=== PATIENT | male | born 1955 | race Caucasian/White ===

== ENCOUNTER 2021-07-31 01:41 | Inpatient (IN) | payer MEDICAID, SELFPAY ==
[2021-07-31] VITALS (13 sets, daily range): BP systolic 85–139; BP diastolic 52–70; PULSE 49–158; RESP 14–20; TEMP 36.2–37.3; O2SAT 95–100; BMI 24.1; BMI 25.8
--- NOTE | ~2021-07-31 | XR_ITS ---
EXAMINATION: XR CHEST CLINICAL INFORMATION: Chest pain COMPARISON: 03/08/2019 TECHNIQUE: Frontal view of the chest was obtained. FINDINGS: Lung volumes are symmetric. No focal consolidation is seen. Perihilar interstitium appears somewhat prominent. No evidence of pneumothorax or significant pleural effusion. Cardiac size is within normal limits. Calcification is present at the aortic arch. No acute osseous findings are seen. XR/XR chest 1V IMPRESSION: Mildly prominent perihilar interstitium, which could reflect airways disease. No focal consolidation.
--- NOTE | 2021-07-31 01:45 | ECG_ITS ---
Test Reason : CP Blood Pressure : / mmHG Vent. Rate : 146 BPM Atrial Rate : 000 BPM P-R Int : 000 ms QRS Dur : 094 ms QT Int : 310 ms P-R-T Axes : 000 064 225 degrees QTc Int : 483 ms Atrial fibrillation with rapid ventricular response ST & T wave abnormality, consider inferior ischemia ST & T wave abnormality, consider anterolateral ischemia Abnormal ECG When compared with ECG of 08-MAR-2019 22:06, Atrial fibrillation has replaced Sinus rhythm Vent. rate has increased BY [address] now depressed in Anterolateral leads T wave inversion now evident in Inferior leads T wave inversion now evident in Anterolateral leads Referred By: Generic ED Physician Electronically Signed By:DUSTY EDWARD MD
--- NOTE | 2021-07-31 01:59 | ED_ITS ---
HPI - Chest Pain General Chief Complaint: Chest Pain Stated Complaint: Chest Pain Time Seen by Provider: 07/31/21 01:51 Source: patient Mode of arrival: ambulatory Limitations: no limitations History of Present Illness HPI narrative: Patient comes emergency room complaining of palpitations and chest pain that started 30 minutes prior to arrival to the emergency room. Patient states that he usually takes metoprolol, he did not take it today because he knew he was going to go out drinking with his friends. Patient admits to drinking alcohol, on arrival to his house patient took 2 tablets of nitroglycerin. Patient is poor historian. Per patient's medical records in [facility], seems that patient is taking Eliquis for atrial fibrillation. Patient is known to use cocaine and heroin. Patient denies using either drug. Also, for patient's records, patient has history of CABG in 2011 Related Data Allergies Allergy/AdvReac Type Severity Reaction Status Date / Time No Known Allergies Allergy Unverified 04/15/20 19:40 [No Known Allergies*] Review of Systems Review of Systems: Constitutional : No Weight loss, No Fever, No Chills, No Night Sweats, No Fatigue, No Malaise ENT/Mouth : No Hearing loss, No Ear Pain, No Nasal Congestion, No Sinus Pain, No Hoarseness, No sore throat, No Rhinorrhea, No Swallowing Difficulty Eyes: No Eye Pain, No Swelling, No Redness, No Foreign Body, No Discharge, No Vision Changes Cardiovascular : Complaining of chest pain, palpitations Respiratory : No Cough, No Sputum, No Wheezing, No Smoke Exposure, No Dyspnea Gastrointestinal : No Nausea, No Vomiting, No Diarrhea, No Constipation, No abdominal Pain, No Hematochezia, No Melena Genitourinary : no irregular bleeding, No Dysuria, No Urinary Frequency, No Tyree turia, No Urinary Incontinence, No Urgency, No Flank Pain, No Urinary Flow Changes, No Hesitancy Musculoskeletal : No joint pain, No Myalgias, No Joint Swelling Skin : No Skin Lesions, No rash Neuro : No Weakness, No Numbness, No Paresthesias, No Loss of Consciousness, No Dizziness, No Headache Psych : No Anxiety/Panic, No Depression, No SI/HI/AH/VH, No Social Issues, Heme/Lymph: No Bruising, No Bleeding,No Lymphadenopathy Endocrine : No Polyuria, No Polydipsia, No Temperature Intolerance PMFSH Social History Social History Advance Directives: No Physical Exam Vital Signs: Vital Signs: Last Vital Signs Temp 99.2 F 07/31/21 01:55 Pulse 65 07/31/21 05:50 Resp 18 07/31/21 05:50 BP 91/52 L 07/31/21 05:50 Pulse Ox 98 07/31/21 05:50 BMI result Body Mass Index 24.1 Const: Other: Appearance: Alert. Oriented X3. Patient looks uncomfortable, shaking, states he feels very cold Eyes: Pupils equal, round and reactive to light. ENT: Pharynx normal. Neck: Normal inspection. Neck supple. No lymph nodes noted. No crepitus CVS: Irregularly irregular, Pulses normal. Normal S1 and S2 Respiratory: No respiratory distress. Breath sounds normal. No Wheezing. No rales Abdomen: Soft and nontender. No rigidity. No distention. Skin: Skin warm and dry. Normal skin color. Normal skin turgor. Extremities: No lower extremity edema. No lower extremity edema. No Lacerations. No Rash Neuro: Oriented X 3. No motor deficit. No sensory deficit. Moving all extermities. No slurred speech. Course Course Course Narrative: Patient's blood pressure dropped in the mid 80s, likely secondary to the 2 doses of metoprolol IV. Sepsis not suspected. Patient's he art rate improved to 77, patient resting comfortably Patient was given IV fluids to increase the blood pressure. Patient states that this time he has no chest pain at all, heart rate in the mid 70s. Overall patient feels much better. Patient's atrial fibrillation with RVR likely triggered by alcohol and skipping metoprolol home dose. Patient's troponin went from 3.6 to 141.2 in less than 3 hours. Patient is asymptomatic. No acute EKG changes. I discussed the patient with Dr. Garcia, we will stop the Eliquis and start heparin. Patient being admitted by Dr. Guzman [facility] - Chest Pain Lab Data Result diagrams: 07/31/21 02:08 07/31/21 02:08 Labs: Lab Results 07/31/21 07/31/21 07/31/21 Range/Units 02:08 02:08 02:08 WBC 6.6 (4.8-10.8) X10*3/uL RBC 3.83 L (4.60-5.80) X10*6/uL Hgb 12.0 L (14.0-18.0) g/dl Hct 35.7 L (42.0-52.0) % MCV 93.2 (80.0-98.0) fL MCH 31.3 (27.0-33.0) pg MCHC 33.6 (31.0-36.0) g/dl RDW 13.4 (11.0-16.0) % Plt Count 111 L (160-400) X10*3/uL MPV 11.0 (9.4-12.4) fL Immature Gran % (Auto) 0.0 (0.0-0.4) % Neut % (Auto) 40.8 L (45-73) % Lymph % (Auto) 45.4 H (20-40) % [place] % (Auto) 9.1 (2-11) % Eos % (Auto) 4.4 H (0-4) % Baso % (Auto) 0.3 (0-2) % Lymph # (Auto) 3.0 (1.2-4.9) X10*3/uL [place] # (Auto) 0.6 (0.1-1.2) X10*3/uL Eos # (Auto) 0.3 (0.0-0.4) X10*3/uL Baso # (Auto) 0.0 (0.0-0.2) X10*3/uL Abs Immat Gran (auto) 0.00 (0.00-0.03) X10*3/uL Absolute Neuts (auto) 2.7 (2.0-8.3) x10*3/uL Absolute Nucleated RBC 0.000 (0.0-0.012) X10*3/uL Nucleated RBC % (auto) 0.0 (0.0-0.2) /100WBC Smear Tech's Comments VERIFIED PT 12.9 (9.9-13.0) SEC INR 1.1 (0.9-1.1) Sodium 139 (135-145) mmol/L Potassium 3.1 L (3.3-5.1) mmol/L Chloride 104 (96-108) mmol/L Carbon Dioxide 24 (22-29) mmol/L Anion Gap 14 (12-20) BUN 21 H (9-16) mg/dL Creatinine 1.08 (0.5-1.4) mg/dL Estim Creat Clear Calc 65.9 Estimated GFR > 60 Random Glucose 79 (60-115) mg/dL Lactic Acid (0.5-2.0) mmol/L Lactic Acid F/U @ 2Hr (0.5-2.0) mmol/L Calcium 9.1 (8.4-10.2) mg/dL Magnesium 2.2 (1.6-2.6) mg/dL Total Bilirubin 0.5 (0.0-1.0) mg/dL Direct Bilirubin 0.2 (0.0-0.5) mg/dL AST 25 (5-37) U/L ALT 18 (0-40) U/L Alkaline Phosphatase 114 (39-117) U/L Troponin I High Sens (<3.5-35.0) ng/L B-Natriuretic Peptide (<100) pg/mL Total Protein 7.8 (6.5-8.0) g/dL Albumin 4.3 (3.5-5.0) g/dL Ethyl Alcohol mg/dL COVID-19 (DAMI) (Negative) COVID-19 Clin Com 07/31/21 07/31/21 07/31/21 Range/Units 02:08 02:08 02:08 WBC (4.8-10.8) X10*3/uL RBC (4.60-5.80) X10*6/uL Hgb (14.0-18.0) g/dl Hct (42.0-52.0) % MCV (80.0-98.0) fL MCH (27.0-33.0) pg MCHC (31.0-36.0) g/dl RDW (11.0-16.0) % Plt Count (160-400) X10*3/uL MPV (9.4-12.4) fL Immature Gran % (Auto) (0.0-0.4) % Neut % (Auto) (45-73) % Lymph % (Auto) (20-40) % [place] % (Auto) (2-11) % Eos % (Auto) (0-4) % Baso % (Auto) (0-2) % Lymph # (Auto) (1.2-4.9) X10*3/uL [place] # (Auto) (0.1-1.2) X10*3/uL Eos # (Auto) (0.0-0.4) X10*3/uL Baso # (Auto) (0.0-0.2) X10*3/uL Abs Immat Gran (auto) (0.00-0.03) X10*3/uL Absolute Neuts (auto) (2.0-8.3) x10*3/uL Absolute Nucleated RBC (0.0-0.012) X10*3/uL Nucleated RBC % (auto) (0.0-0.2) /100WBC Smear Tech's Comments PT (9.9-13.0) SEC INR (0.9-1.1) Sodium (135-145) mmol/L Potassium (3.3-5.1) mmol/L Chloride (96-108) mmol/L Carbon Dioxide (22-29) mmol/L Anion Gap (12-20) BUN (9-16) mg/dL Creatinine (0.5-1.4) mg/dL Estim Creat Clear Calc Estimated GFR Random Glucose (60-115) mg/dL Lactic Acid 2.8 H* (0.5-2.0) mmol/L Lactic Acid F/U @ 2Hr (0.5-2.0) mmol/L Calcium (8.4-10.2) mg/dL Magnesium (1.6-2.6) mg/dL Total Bilirubin (0.0-1.0) mg/dL Direct Bilirubin (0.0-0.5) mg/dL AST (5-37) U/L ALT (0-40) U/L Alkaline Phosphatase (39-117) U/L Troponin I High Sens 3.6 (<3.5-35.0) ng/L B-Natriuretic Peptide 33 (<100) pg/mL Total Protein (6.5-8.0) g/dL Albumin (3.5-5.0) g/dL Ethyl Alcohol mg/dL COVID-19 (DAMI) Negative (Negative) COVID-19 Clin Com See Note 07/31/21 07/31/21 07/31/21 Range/Units 02:09 04:21 04:43 WBC (4.8-10.8) X10*3/uL RBC (4.60-5.80) X10*6/uL Hgb (14.0-18.0) g/dl Hct (42.0-52.0) % MCV (80.0-98.0) fL MCH (27.0-33.0) pg MCHC (31.0-36.0) g/dl RDW (11.0-16.0) % Plt Count (160-400) X10*3/uL MPV (9.4-12.4) fL Immature Gran % (Auto) (0.0-0.4) % Neut % (Auto) (45-73) % Lymph % (Auto) (20-40) % [place] % (Auto) (2-11) % Eos % (Auto) (0-4) % Baso % (Auto) (0-2) % Lymph # (Auto) (1.2-4.9) X10*3/uL [place] # (Auto) (0.1-1.2) X10*3/uL Eos # (Auto) (0.0-0.4) X10*3/uL Baso # (Auto) (0.0-0.2) X10*3/uL Abs Immat Gran (auto) (0.00-0.03) X10*3/uL Absolute Neuts (auto) (2.0-8.3) x10*3/uL Absolute Nucleated RBC (0.0-0.012) X10*3/uL Nucleated RBC % (auto) (0.0-0.2) /100WBC Smear Tech's Comments PT (9.9-13.0) SEC INR (0.9-1.1) Sodium (135-145) mmol/L Potassium (3.3-5.1) mmol/L Chloride (96-108) mmol/L Carbon Dioxide (22-29) mmol/L Anion Gap (12-20) BUN (9-16) mg/dL Creatinine (0.5-1.4) mg/dL Estim Creat Clear Calc Estimated GFR Random Glucose (60-115) mg/dL Lactic Acid (0.5-2.0) mmol/L Lactic Acid F/U @ 2Hr 0.9 (0.5-2.0) mmol/L Calcium (8.4-10.2) mg/dL Magnesium (1.6-2.6) mg/dL Total Bilirubin (0.0-1.0) mg/dL Direct Bilirubin (0.0-0.5) mg/dL AST (5-37) U/L ALT (0-40) U/L Alkaline Phosphatase (39-117) U/L Troponin I High Sens 141.2 H* D (<3.5-35.0) ng/L B-Natriuretic Peptide (<100) pg/mL Total Protein (6.5-8.0) g/dL Albumin (3.5-5.0) g/dL Ethyl Alcohol 19 mg/dL COVID-19 (DAMI) (Negative) COVID-19 Clin Com Discharge Plan Discharge Clinical Impression: Atrial fibrillation with RVR, Chest pain Patient Disposition: Admitted As Inpatient Instructions: A-fib (Atrial Fibrillation) (ED) Additional Instructions: Please avoid skipping your home dose of metoprolol. Please follow-up with your primary care physician tomorrow. If you have any worsening or new symptoms, please return to the emergency room or call 911
[2021-07-31] MEDS: Metoprolol Tartrate 5 MG/5 ML VIAL IVPUSH ×2 (02:11→02:57)
[2021-07-31] MEDS: 0.9 % Sodium Chloride 1,000 ML 999 ML IVCONT ×2 (02:11→03:55)
--- NOTE | 2021-07-31 02:16 | PC.NURSE ---
pt to room directly from wr. pt c/o chest pain after drinking and using cocaine tonight with a hx of gaye. at bedside with pt in Gu[place]ese. pt is a poor historian and unsure if he is on blood thinners. pt on monitor with HR 145, pt arrives alert, respirations easy, n/l. skin w/d. IV placed to RAC, labs drawn to lab. BC obtained. Pt medicated as per emar for hr. will continue to monitor pt.
[2021-07-31 02:17] LABS: PLT CLUMP 1; Red Cell Distribution Width 13.4 % (11.0-16.0); SCAN SMEAR FLAG 1
[2021-07-31 02:19] LABS: Basophils Percent Auto 0.3 % (0-2); Eosinophils Absolute Auto 0.3 X10*3/uL (0.0-0.4); Eosinophils Percent Auto 4.4 % (0-4); Hematocrit 35.7 % (42.0-52.0); Lymphocytes Percent Auto 45.4 % (20-40); MANUAL DIFF FLAG SCAN; Mean Corpuscular HGB Conc 33.6 g/dl (31.0-36.0); Mean Corpuscular Hemoglobin 31.3 pg (27.0-33.0); Mean Corpuscular Volume 93.2 fL (80.0-98.0); Monocytes Absolute Auto 0.6 X10*3/uL (0.1-1.2); Monocytes Percent Auto 9.1 % (2-11); Neutrophils Absolute Auto 2.7 x10*3/uL (2.0-8.3); Neutrophils Percent Auto 40.8 % (45-73); Red Blood Count 3.83 X10*6/uL (4.60-5.80)
[2021-07-31 02:31] LABS: INTERNATIONAL NORM RATIO 1.1 (0.9-1.1); Prothrombin Time 12.9 SEC (9.9-13.0)
[2021-07-31 02:33] LABS: Ethanol 19 mg/dL
[2021-07-31 02:33] LABS: Lactic Acid 2.8 mmol/L (0.5-2.0)
[2021-07-31 02:34] LABS: COVID-19 Test Negative (Negative)
[2021-07-31 02:35] LABS: Alanine Aminotransferase 18 U/L (0-40); Albumin Level 4.3 g/dL (3.5-5.0); Alkaline Phosphatase 114 U/L (39-117); Anion Gap 14 (12-20); Aspartate Amino Transferase 25 U/L (5-37); Bilirubin Direct 0.2 mg/dL (0.0-0.5); Bilirubin Total 0.5 mg/dL (0.0-1.0); Blood Urea Nitrogen 21 mg/dL (9-16); Calcium 9.1 mg/dL (8.4-10.2); Carbon Dioxide 24 mmol/L (22-29); Chloride 104 mmol/L (96-108); Creatinine Clr Calc Pharmacy 65.9; Estimated Glomerular Filt Rate > 60; Glucose Random 79 mg/dL (60-115); Magnesium 2.2 mg/dL (1.6-2.6); Potassium 3.1 mmol/L (3.3-5.1); Sodium 139 mmol/L (135-145); Total Protein 7.8 g/dL (6.5-8.0)
[2021-07-31 02:40] LABS: B Type Natriuretic Peptide 33 pg/mL (<100); Troponin-I High Sensitivity 3.6 ng/L (<3.5-35.0)
[2021-07-31 02:42] LABS: Platelet Count 111 X10*3/uL (160-400); White Blood Count 6.6 X10*3/uL (4.8-10.8)
[2021-07-31 02:43] LABS: SLIDE REVIEW VERIFIED
[2021-07-31] MEDS: Potassium Chloride Packet 20 MEQ PACKET 40 MEQ PO ×2 (03:00→08:08)
--- NOTE | 2021-07-31 03:02 | PC.NURSE ---
pt medicated with 2nd dose of metoprolol as per emar. pt states my chest is not hurting at this time pt remains on monitor with hr 110- 128
[2021-07-31 04:14] LABS: Reflex Lactate? Lactic Acid Added
--- NOTE | 2021-07-31 04:31 | ECG_ITS ---
Test Reason : RYTHYM CHECK Blood Pressure : / mmHG Vent. Rate : 071 BPM Atrial Rate : 071 BPM P-R Int : 200 ms QRS Dur : 098 ms QT Int : 422 ms P-R-T Axes : 075 043 047 degrees QTc Int : 458 ms Normal sinus rhythm Normal ECG When compared with ECG of 31-JUL-2021 01:44, Sinus rhythm has replaced Atrial fibrillation Vent. rate has decreased BY [address] no longer depressed in Anterolateral leads T wave inversion no longer evident in Inferior leads T wave inversion no longer evident in Anterolateral leads Referred By: Ximena Nugent Electronically Signed By:DUSTY EDWARD MD
[2021-07-31 04:39] LABS: ~Lactic Acid-LAB USE ONLY 0.9 mmol/L (0.5-2.0)
--- NOTE | 2021-07-31 04:58 | PC.NURSE ---
REPEAT TROP AND LACTIC ACID DRAWN TO LAB. PT REMAINS ON MONITOR WITH A HR 71, PT DENIES CP AT THIS TIME. PT AWAITING FOR PENDING LABS AND WILL POSSIBLY BE D/C AT THAT TIME.
[2021-07-31 05:13] LABS: Troponin-I High Sensitivity 141.2 ng/L (<3.5-35.0)
--- NOTE | 2021-07-31 05:49 | PC.NURSE ---
PT BEING ADMITTED TO THE HOSPITAL D/T HIGH REPEAT TROPONIN.
--- NOTE | 2021-07-31 06:16 | P.HPHOSP_ITS ---
History of Present Illness Date of Service: 07/31/21 Chief Complaint: Chest pain 66 year old male with CAD, [place] in 2012 s/p CABG, h/o AFIB on metoprolol and Eliquis. He presents with chest pain and palpitation, he was out drinking and didn't take his metoprolol and upon getting home was experiencing palpitations and chest pain and took 2 nitro with some relieve and calling 911 in ED he was in AFIB with RVR with ventricular rate nearly 150. He converted to sinus rythm after IV metoprolol. His initial troponin I was 3.6 and repeat 141. Cardiology advises stopping Eliquis and starting heparin drip. He is now chest pain free, but BP low at 91/52 assymptomatic. Review of Systems Review of Systems: Gen: no fever Resp: no sob, no cough CV: no chest at moment, no COMER, no leg edema GI: No n/v, no abd pain Neuro: No confusion Yes all other systems are reviewed and are negative [facility] Medical History (Updated 07/31/21 @ 06:26 by Zak Guzman MD) Afib CAD (coronary artery disease) Family History (Updated 07/31/21 @ 06:23 by Zak Guzman MD) Other CAD (coronary artery disease) Pertinent family history: Father of [place] in his 70s Surgical History (Updated 07/31/21 @ 06:24 by Zak Guzman MD) History of appendectomy Hx of CABG Social History (Updated 07/31/21 @ 06:25 by Zak Guzman MD) Alcohol intake: current Patient Tobacco Use Status: Former Tobacco user Advance Directives: No Meds Allergies Allergy/AdvReac Type Severity Reaction Status Date / Time No Known Allergies Allergy Unverified 04/15/20 19:40 [No Known Allergies*] Active Medications: Current Medications Heparin Sodium/Sodium Chloride () 25,000 unit in 250 mls @ 0 mls/hr IVCONT .Q0M [facility]; Protocol Home Medications Medication Instructions Recorded Confirmed Last Taken Type Eliquis 07/31/21 Unknown History aspirin 325 mg PO DAILY 07/31/21 07/31/21 Unknown History calcium 1,000 mg PO DAILY 07/31/21 07/31/21 Unknown History metoprolol succinate 100 mg PO DAILY 07/31/21 07/31/21 Unknown History Physical Exam Vital Signs and Narrative: Vital Signs: Last Vital Signs Temp 99.2 F 07/31/21 01:55 Pulse 65 07/31/21 05:50 Resp 18 07/31/21 05:50 BP 91/52 L 07/31/21 05:50 Pulse Ox 98 07/31/21 05:50 BMI result Body Mass Index 24.1 Const: Other: Constitutional: Alert, in no distress, Mental Status: Oriented to person, place and time. Eyes: Pupils are equal, round and reactive to light. Ear, Nose and Throat: Oropharynx clear, mucous membranes moist. Ears and nose without eformities. Trachea midline. Respiratory: Clear to auscultation. No wheezing, rales or rhonchi. Cardiovascular: S1 S2 regular. No murmurs, rubs or gallops. Gastrointestinal: Abdomen soft, non-tender, non-distended. Normal bowel sounds.? Neurologic: Cranial nerves II-XII grossly intact. No focal neurological deficits. Moves all extremities spontaneously.? Skin: No rashes or lesions.? Musculoskeletal: No cyanosis or clubbing. Psychiatric: Normal mood and affect? Results Labs CBC and Chem 7: 07/31/21 02:08 07/31/21 02:08 Labs: Laboratory Results - last 24 hr 07/31/21 07/31/21 07/31/21 02:08 02:08 02:08 MCV 93.2 MCH 31.3 MCHC 33.6 RDW 13.4 Plt Count 111 L MPV 11.0 Immature Gran % (Auto) 0.0 Neut % (Auto) 40.8 L Lymph % (Auto) 45.4 H [place] % (Auto) 9.1 Eos % (Auto) 4.4 H Baso % (Auto) 0.3 Lymph # (Auto) 3.0 [place] # (Auto) 0.6 Eos # (Auto) 0.3 Baso # (Auto) 0.0 Abs Immat Gran (auto) 0.00 Absolute Neuts (auto) 2.7 Absolute Nucleated RBC 0.000 Nucleated RBC % (auto) 0.0 Smear Tech's Comments VERIFIED PT 12.9 INR 1.1 Anion Gap 14 Estim Creat Clear Calc 65.9 Estimated GFR > 60 Random Glucose 79 Lactic Acid Lactic Acid F/U @ 2Hr Calcium 9.1 Magnesium 2.2 Total Bilirubin 0.5 Direct Bilirubin 0.2 AST 25 ALT 18 Alkaline Phosphatase 114 Troponin I High Sens B-Natriuretic Peptide Total Protein 7.8 Albumin 4.3 Ethyl Alcohol COVID-19 (DAMI) COVID-19 [facility] 07/31/21 07/31/21 07/31/21 02:08 02:08 02:08 MCV MCH MCHC RDW Plt Count MPV Immature Gran % (Auto) Neut % (Auto) Lymph % (Auto) [place] % (Auto) Eos % (Auto) Baso % (Auto) Lymph # (Auto) [place] # (Auto) Eos # (Auto) Baso # (Auto) Abs Immat Gran (auto) Absolute Neuts (auto) Absolute Nucleated RBC Nucleated RBC % (auto) Smear Tech's Comments PT INR Anion Gap Estim Creat Clear Calc Estimated GFR Random Glucose Lactic Acid 2.8 H* Lactic Acid F/U @ 2Hr Calcium Magnesium Total Bilirubin Direct Bilirubin AST ALT Alkaline Phosphatase Troponin I High Sens 3.6 B-Natriuretic Peptide 33 Total Protein Albumin Ethyl Alcohol COVID-19 (DAMI) Negative COVID-19 [facility] See Note 07/31/21 07/31/21 07/31/21 02:09 04:21 04:43 MCV MCH MCHC RDW Plt Count MPV Immature Gran % (Auto) Neut % (Auto) Lymph % (Auto) [place] % (Auto) Eos % (Auto) Baso % (Auto) Lymph # (Auto) [place] # (Auto) Eos # (Auto) Baso # (Auto) Abs Immat Gran (auto) Absolute Neuts (auto) Absolute Nucleated RBC Nucleated RBC % (auto) Smear Tech's Comments PT INR Anion Gap Estim Creat Clear Calc Estimated GFR Random Glucose Lactic Acid Lactic Acid F/U @ 2Hr 0.9 Calcium Magnesium Total Bilirubin Direct Bilirubin AST ALT Alkaline Phosphatase Troponin I High Sens 141.2 H* D B-Natriuretic Peptide Total Protein Albumin Ethyl Alcohol 19 COVID-19 (DAMI) COVID-19 [facility] Com Imaging Radiologist's Impressions: Impressions Chest X-Ray 07/31/21 02:29 IMPRESSION: Mildly prominent perihilar interstitium, which could reflect airways disease. No focal consolidation. Assessment and Plan (1) NSTEMI (non-ST elevated myocardial infarction): Status: Acute (2) Atrial fibrillation with RVR: Status: Acute (3) Chest pain: Status: Acute 66 year old male with CAD, [place] in 2012 s/p CABG, h/o AFIB on metoprolol and Eliquis. He presents with chest pain and palpitation and found to be in AFIB with RVR, and has elevated troponin I. NSTEMI--suspect rise in trop is related to AFIB with RVR -continue Heparin -ASA -BB if BP ok -Statin -Cardiology eval AFIB--back in sinus, on Eliquis at home but now on heparin. Metoprolol for rate control h/o CAD--should be on ASA, BB and stain.. Med rec is been done. Low BP--assymptomatic, NS been given HypOkalemia--K replaced DVT: heparin Quality Stroke Does the patient have a stroke diagnosis?: No VTE Prior VTE?: No VTE Risk Level:: Medical - moderate - high VTE Device Contraindication: Treatment Not Indicated VTE Drug Contraindication: N/A - Med Ordered
--- NOTE | 2021-07-31 06:17 | PC.NURSE ---
HOSPITALIST IN ROOM FOR EVAL. PT DOES NOT KNOW MEDS OR DOSES FOR MED REC.
--- NOTE | 2021-07-31 06:56 | PC.NURSE ---
unable to hang heparin at this time d/t difference in weight. Awaiting for chg in doses. report given to on- coming nurse.
[2021-07-31] MEDS: 0.9 % Sodium Chloride 1,000 ML 100 ML IVCONT (07:13)
[2021-07-31 07:24] LABS: INTERNATIONAL NORM RATIO 1.2 (0.9-1.1); Prothrombin Time 13.9 SEC (9.9-13.0)
[2021-07-31 07:27] LABS: Partial Thromboplastin Time 31.7 SEC (24.1-38.0)
[2021-07-31] MEDS: Heparin Sodium,Porcine 5,000 UNIT/ML VIAL 6200 UNIT IVPUSH (08:00)
[2021-07-31] MEDS: Heparin Sodium,Porcine/1/2NS 25,000 UNIT/250 ML IV.SOLN 10.79 UNIT IVCONT (08:07)
[2021-07-31] MEDS: 0.9 % Sodium Chloride Flush 3 ML SYRINGE IVFLUSH ×3 (08:10→20:30)
[2021-07-31 08:33] LABS: INTERNATIONAL NORM RATIO 1.3 (0.9-1.1); Prothrombin Time 14.9 SEC (9.9-13.0)
[2021-07-31 08:39] LABS: Mean Corpuscular HGB Conc 33.3 g/dl (31.0-36.0); Mean Corpuscular Hemoglobin 31.4 pg (27.0-33.0); Mean Corpuscular Volume 94.3 fL (80.0-98.0); Mean Platelet Volume 11.6 fL (9.4-12.4); Red Blood Count 3.18 X10*6/uL (4.60-5.80); Red Cell Distribution Width 13.2 % (11.0-16.0); White Blood Count 5.1 X10*3/uL (4.8-10.8)
[2021-07-31 08:57] LABS: Platelet Count 94 X10*3/uL (160-400)
[2021-07-31 08:59] LABS: PTT Heparin Drip > 200.0 SEC (53-77.9)
--- NOTE | 2021-07-31 09:30 | PC.NURSE ---
HEPARIN PROTOCOL PTT WAS DRAWN AT WRONG TIME WHILE HEPARIN WAS RUNNING. DR FOUNTAIN MADE AWARE OF SITUATION AND LAB RESULT > 200. PTT ACTUALLY DUE FOR 1407. HEPARIN CONTINUES TO RUN AT THIS TIME.
[2021-07-31] MEDS: Folic Acid 1 MG TABLET PO (10:29)
[2021-07-31] MEDS: Aspirin 81 MG TAB.CHEW PO (10:29)
[2021-07-31] MEDS: Thiamine HCL 100 MG TABLET PO (10:29)
--- NOTE | 2021-07-31 11:44 | PM.EVENT ---
Event Note Date of Service: 08/01/21 Event Note: Patient seen examined, came to the hospital because of heart racing, denies any chest pain or abdominal pain or fever chills Physical exam: Unchanged from H&P. Assessment and plan: Coordinated in H&P, cardiology consult pending. Patient was on heparin drip which was stopped probably elevated troponin secondary to AFib. Patient need further workup outpatient Offered workup where he wants to do it from with his PCP PTT still running in 150 range, initial PTT of 200 was added because Accidentally drawn while at heparin drip was running. discussed with the pharmacy and the nursing staff will start Eliquis once ptt is normal range
--- NOTE | 2021-07-31 13:37 | PM.CNCAR ---
History of Present Illness History of Present Illness Date of Service: 07/31/21 Requesting physician: Tex Scott Chief complaint: NSTEMI, AFIB Narrative: Pleasant 66-year-old gentleman who is from [place] and had bypass surgery many years ago. He does not know the details. He is presenting for palpitations. Was noted to be in AFib with RVR. He has reverted back to sinus rhythm at this stage. He did not have any chest discomfort but had palpitations. Previously he has been noticing some exertional chest discomfort which is central in location. He did not have similar discomfort when he had AFib with RVR. He ruled in for NSTEMI and his high sensitivity troponins were 3.6 and 141. Currently pain free. Back in sinus rhythm. [facility] Past Medical History Medical History (Updated 07/31/21 @ 06:26 by Zak Guzman MD) Afib CAD (coronary artery disease) Family History Family History (Updated 07/31/21 @ 06:23 by Zak Guzman MD) Other CAD (coronary artery disease) Surgical History Surgical History (Updated 07/31/21 @ 06:24 by Zak Guzman MD) History of appendectomy Hx of CABG Social History Social History (Updated 07/31/21 @ 06:25 by Zak Guzman MD) Alcohol intake: current Patient Tobacco Use Status: Former Tobacco user Advance Directives: No Meds Allergies Allergy/AdvReac Type Severity Reaction Status Date / Time No Known Allergies Allergy Unverified 04/15/20 19:40 [No Known Allergies*] Active Medications: Current Medications Acetaminophen (Acetaminophen 325 Mg Tablet) 650 mg PO Q6H PRN PRN Reason: Pain, Mild (Pain Scale 1-3) Aspirin (Aspirin 81 Mg Tab.Chew) 81 mg PO DAILY [facility] Last Admin: 07/31/21 10:29 Dose: 81 mg Documented by: Atorvastatin Calcium (Atorvastatin Calcium 80 Mg Tablet) 80 mg PO BEDTIME [facility] Folic Acid (Folic Acid 1 Mg Tablet) 1 mg PO DAILY [facility] Last Admin: 07/31/21 10:29 Dose: 1 mg Documented by: Heparin Sodium (Porcine) (Heparin Sodium,Porcine 5,000 Unit/Ml Vial) 3,100 unit 40 unit/kg (3100 unit) IVPUSH PROTOCOL BOLUS PRN; Protocol PRN Reason: 40 unit/kg - Heparin Protocol Heparin Sodium (Porcine) (Heparin Sodium,Porcine 5,000 Unit/Ml Vial) 6,200 unit 80 unit/kg (6200 unit) IVPUSH PROTOCOL BOLUS PRN; Protocol PRN Reason: 80 unit/kg - Heparin Protocol Sodium Chloride (Ns) 1,000 mls @ 100 mls/hr IVCONT .Q10H [facility] Stop: 07/31/21 16:44 Last Admin: 07/31/21 07:13 Dose: 100 mls/hr Documented by: Heparin Sodium/Sodium Chloride () 25,000 unit in 250 mls @ 0 mls/hr IVCONT .Q0M [facility]; Protocol Last Admin: 07/31/21 08:07 Dose: 14 units/kg/hr, 10.79 mls/hr Documented by: Melatonin (Melatonin 3 Mg Tablet) 6 mg PO BEDTIME PRN PRN Reason: Insomnia Sodium Chloride (0.9 % Sodium Chloride Flush 3 Ml Syringe) 3 ml IVFLUSH QSHIFT [facility] Last Admin: 07/31/21 08:10 Dose: 3 ml Documented by: Thiamine HCl (Thiamine Hcl 100 Mg Tablet) 100 mg PO DAILY [facility] Last Admin: 07/31/21 10:29 Dose: 100 mg Documented by: Home Medications Medication Instructions Recorded Confirmed Last Taken Type Eliquis 07/31/21 Unknown History aspirin 325 mg PO DAILY 07/31/21 07/31/21 Unknown History calcium 1,000 mg PO DAILY 07/31/21 07/31/21 Unknown History metoprolol succinate 100 mg PO DAILY 07/31/21 07/31/21 Unknown History Physical Exam Vital Signs: Vital Signs: Last Vital Signs Temp 99.2 F 07/31/21 01:55 Pulse 58 07/31/21 10:28 Resp 14 07/31/21 10:28 BP 111/65 07/31/21 10:28 Pulse Ox 95 07/31/21 10:28 BMI result Body Mass Index 25.8 GENERAL APPEARANCE: in no acute distress, pleasant. NECK: no carotid bruit, mild jugular venous distention. SKIN: no suspicious lesions, warm and dry. HEART: no murmurs, regular rate and rhythm. LUNGS: Few crackles at bases. ABDOMEN: soft, nontender. EXTREMITIES: no edema. PERIPHERAL PULSES: equal. NEUROLOGIC: No gross deficits, AAO X 3 Objective Labs and Meds Result diagrams: 07/31/21 08:20 07/31/21 02:08 Lab results: Laboratory Results - last 24 hr 07/31/21 07/31/21 07/31/21 02:08 02:08 02:08 WBC 6.6 RBC 3.83 L Hgb 12.0 L Hct 35.7 L MCV 93.2 MCH 31.3 MCHC 33.6 RDW 13.4 Plt Count 111 L MPV 11.0 Immature Gran % (Auto) 0.0 Neut % (Auto) 40.8 L Lymph % (Auto) 45.4 H [place] % (Auto) 9.1 Eos % (Auto) 4.4 H Baso % (Auto) 0.3 Lymph # (Auto) 3.0 [place] # (Auto) 0.6 Eos # (Auto) 0.3 Baso # (Auto) 0.0 Abs Immat Gran (auto) 0.00 Absolute Neuts (auto) 2.7 Absolute Nucleated RBC 0.000 Nucleated RBC % (auto) 0.0 Smear Tech's Comments VERIFIED PT 12.9 INR 1.1 APTT PTT (Heparin Protocol) Sodium 139 Potassium 3.1 L Chloride 104 Carbon Dioxide 24 Anion Gap 14 BUN 21 H Creatinine 1.08 Estim Creat Clear Calc 65.9 Estimated GFR > 60 Random Glucose 79 Lactic Acid Lactic Acid F/U @ 2Hr Calcium 9.1 Magnesium 2.2 Total Bilirubin 0.5 Direct Bilirubin 0.2 AST 25 ALT 18 Alkaline Phosphatase 114 Troponin I High Sens B-Natriuretic Peptide Total Protein 7.8 Albumin 4.3 Ethyl Alcohol COVID-19 ([facility]AMI) COVID-19 Clin Com 07/31/21 07/31/21 07/31/21 02:08 02:08 02:08 WBC RBC Hgb Hct MCV MCH MCHC RDW Plt Count MPV Immature Gran % (Auto) Neut % (Auto) Lymph % (Auto) [place] % (Auto) Eos % (Auto) Baso % (Auto) Lymph # (Auto) [place] # (Auto) Eos # (Auto) Baso # (Auto) Abs Immat Gran (auto) Absolute Neuts (auto) Absolute Nucleated RBC Nucleated RBC % (auto) Smear Tech's Comments PT INR APTT PTT (Heparin Protocol) Sodium Potassium Chloride Carbon Dioxide Anion Gap BUN Creatinine Estim Creat Clear Calc Estimated GFR Random Glucose Lactic Acid 2.8 H* Lactic Acid F/U @ 2Hr Calcium Magnesium Total Bilirubin Direct Bilirubin AST ALT Alkaline Phosphatase Troponin I High Sens 3.6 B-Natriuretic Peptide 33 Total Protein Albumin Ethyl Alcohol COVID-19 ([facility]AMI) Negative [facility] See Note 07/31/21 07/31/21 07/31/21 02:09 04:21 04:43 WBC RBC Hgb Hct MCV MCH MCHC RDW Plt Count MPV Immature Gran % (Auto) Neut % (Auto) Lymph % (Auto) [place] % (Auto) Eos % (Auto) Baso % (Auto) Lymph # (Auto) [place] # (Auto) Eos # (Auto) Baso # (Auto) Abs Immat Gran (auto) Absolute Neuts (auto) Absolute Nucleated RBC Nucleated RBC % (auto) Smear Tech's Comments PT INR APTT PTT (Heparin Protocol) Sodium Potassium Chloride Carbon Dioxide Anion Gap BUN Creatinine Estim Creat Clear Calc Estimated GFR Random Glucose Lactic Acid Lactic Acid F/U @ 2Hr 0.9 Calcium Magnesium Total Bilirubin Direct Bilirubin AST ALT Alkaline Phosphatase Troponin I High Sens 141.2 H* D B-Natriuretic Peptide Total Protein Albumin Ethyl Alcohol 19 COVID-19 ([facility]AMI) [employer] 07/31/21 07/31/21 07/31/21 07:11 08:20 08:20 WBC 5.1 RBC 3.18 L Hgb 10.0 L Hct 30.0 L MCV 94.3 MCH 31.4 MCHC 33.3 RDW 13.2 Plt Count 94 L MPV 11.6 Immature Gran % (Auto) Neut % (Auto) Lymph % (Auto) [place] % (Auto) Eos % (Auto) Baso % (Auto) Lymph # (Auto) [place] # (Auto) Eos # (Auto) Baso # (Auto) Abs Immat Gran (auto) Absolute Neuts (auto) Absolute Nucleated RBC 0.000 Nucleated RBC % (auto) 0.0 Smear Tech's Comments PT 13.9 H 14.9 H INR 1.2 H 1.3 H APTT 31.7 PTT (Heparin Protocol) > 200.0 H* Sodium Potassium Chloride Carbon Dioxide Anion Gap BUN Creatinine Estim Creat Clear Calc Estimated GFR Random Glucose Lactic Acid Lactic Acid F/U @ 2Hr Calcium Magnesium Total Bilirubin Direct Bilirubin AST ALT Alkaline Phosphatase Troponin I High Sens B-Natriuretic Peptide Total Protein Albumin Ethyl Alcohol COVID-19 ([facility]AMI) [employer] [facility] Radiologist's impression: Impressions Chest X-Ray 07/31/21 02:29 IMPRESSION: Mildly prominent perihilar interstitium, which could reflect airways disease. No focal consolidation. Assessment and Plan (1) NSTEMI (non-ST elevated myocardial infarction): Status: Acute (2) Atrial fibrillation with RVR: Status: Acute Pleasant 66 gentleman who has background history of coronary artery disease and bypass surgery who is presenting with palpitations and AFib with RVR. He has reverted back to sinus rhythm at this stage. He has ruled in for NSTEMI. I think this is due to demand supply mismatch due to AFib with RVR. He does have some exertional chest discomfort and background of bypass surgery. I have advised him that if he plans to return to [place] any should have a stress test with his home assessment nurse in ER. On the other hand if he plans to stay here long-term then we should keep him overnight and do echocardiography tomorrow and stress testing. He should be on Eliquis. Blood pressure control is good. Thank you for allowing me to participate in the care of your patient. Please feel free to contact me if you have any questions. Procedures Date of Service Date of Service: 07/31/21
[2021-07-31 14:46] LABS: PTT Heparin Drip > 200.0 SEC (53-77.9)
--- NOTE | 2021-07-31 15:11 | PHA.MEDREC ---
Pharmacy Consult ? Medication Reconciliation Pharmacy has completed the medication reconciliation. Pharmacy will follow up on patients med rec on 08/01, pharmacy patient uses is closed- [facility] in [place], [place], methadone clinic is also closed [facility] in [facility] [phone] Will follow up tomorrow
[2021-07-31 16:09] LABS: PTT Heparin Drip 157.7 SEC (53-77.9)
--- NOTE | 2021-07-31 16:11 | MHC.CM.PN ---
it is proving to be a challenge to secure a level of confidence that patient will be able to fill his eliquis rx c his [place] medicaid. evidently, there is a [place] required which poses a barrier. an eliquis 30 day trial card was given to patient, it is unclear id patient can you this at pharmacy c his insurance. there is no documentation on the card stating otherwise but it is still unclear. the [place] medicaid office was closed today, ph: , so we where unable to confirm the card would be helpful. it is hopeful on a sunday prior auth could be obtained or confirmation of the successful use of the trial rx card could be made. pt would have to follow up c his pcp for cont. rx's for eliquis if trial rx proves to be successful. hospitalist is going to hold off on dc until sunday so the aforementioned steps can be taken. cm to cont. to follow.
[2021-07-31 16:53] LABS: PTT Heparin Drip 83.2 SEC (53-77.9)
[2021-07-31] MEDS: methADONE HCl 20 MG/2 ML ORAL.CONC PO (16:58)
[2021-07-31 17:40] LABS: Amphetamine Screen Urine Not Detected (Not Detect); Barbiturates, Urine Not Detected (Not Detect); Benzodiazepines Screen Urine Not Detected (Not Detect); Cocaine Screen Urine POSITIVE (Not Detect); Fentanyl, urine Not Detected (Not Detect); Opiate Screen Urine Not Detected (Not Detect); Phencyclidine Screen Urine Not Detected (Not Detect)
[2021-07-31 17:45] LABS: Cannabinoid Screen Urine POSITIVE (Not Detect)
[2021-07-31] MEDS: Apixaban 5 MG TABLET PO (18:19)
[2021-07-31] MEDS: Atorvastatin Calcium 80 MG TABLET PO (20:30)
[2021-08-01] VITALS: BP 108/56; PULSE 51; RESP 18; TEMP 36.1; O2SAT 96
[2021-08-01 04:00] VITALS: BP 134/60; PULSE 57; RESP 18; TEMP 36.1; O2SAT 96
[2021-08-01] MEDS: Apixaban 5 MG TABLET PO (06:09)
[2021-08-01 06:49] LABS: INTERNATIONAL NORM RATIO 1.3 (0.9-1.1); Prothrombin Time 15.2 SEC (9.9-13.0)
[2021-08-01 06:53] LABS: Hematocrit 31.3 % (42.0-52.0); Hemoglobin 10.6 g/dl (14.0-18.0); Mean Corpuscular HGB Conc 33.9 g/dl (31.0-36.0); Mean Corpuscular Hemoglobin 31.7 pg (27.0-33.0); Mean Corpuscular Volume 93.7 fL (80.0-98.0); Mean Platelet Volume 11.6 fL (9.4-12.4); Red Blood Count 3.34 X10*6/uL (4.60-5.80); Red Cell Distribution Width 13.2 % (11.0-16.0); White Blood Count 6.4 X10*3/uL (4.8-10.8)
[2021-08-01 06:54] LABS: Platelet Count 94 X10*3/uL (160-400)
--- NOTE | 2021-08-01 07:24 | HE.PHANOTE ---
Confirmed methadone 200 mg daily with Lissette Boyer LPN at [facility] ([phone]). Patient last picked up methadone bottles on 07/20/21 for 27 days. He is schedule to order picker more methadone on 08/16/2020. Soraya Cohen, PharmD
[2021-08-01 08:00] VITALS: BP 136/69; PULSE 67; RESP 18; TEMP 36.2; O2SAT 98
[2021-08-01] MEDS: Thiamine HCL 100 MG TABLET PO (09:44)
[2021-08-01] MEDS: Folic Acid 1 MG TABLET PO (09:44)
[2021-08-01] MEDS: 0.9 % Sodium Chloride Flush 3 ML SYRINGE IVFLUSH (09:45)
[2021-08-01 11:28] VITALS: BP 116/63; PULSE 84; RESP 20; TEMP 36.3; O2SAT 98
--- NOTE | 2021-08-01 11:49 | P.DS_ITS ---
DS: Providers Provider Date of Service: 08/01/21 Date of admission: 07/31/21 06:32 Date of discharge: 08/01/21 Primary care physician: Unknown Physician Consults: 07/31/21 06:35 Consult to Cardiology Routine Consulting Provider: Naveen Garcia Reason for consultation: elevated troponin 07/31/21 14:15 Consult to Psychiatry Routine Consulting Provider: Psych Covering Reason for consultation: on methadone Has provider been notified: No DS: Diagnosis Discharge Diagnosis (1) NSTEMI (non-ST elevated myocardial infarction): Status: Acute (2) Atrial fibrillation with RVR: Status: Acute DS: Summary Hospital Course Hospital Course: 66 year old male with CAD, CA in 2012 s/p CABG, h/o AFIB on metoprolol and Eliquis. He presents with chest pain and palpitation, he was out drinking and didn't take his metoprolol? and upon getting home was experiencing palpitations and chest pain and took 2 nitro with some relieve and calling 911 in ED he was in AFIB with RVR with ventricular rate nearly 150. He converted to sinus rythm after IV metoprolol. His initial troponin I was 3.6 and repeat 141. Cardiology advises stopping Eliquis and starting heparin drip. He is now chest pain free, but BP low at 91/52 assymptomatic. hospital course: patient came with AFib with RVR also elevated troponin: patient was started on IV heparin,, aspirin statin- subsequently seen by Cardiology and thought to be elevated troponin related to AFib, patient has history of possible cardiac bypass in the past- continue home plavix, statin also will add warfarin- patient wants to do further testing with his release and technical records clerk in [place] and check inr next 1 -2 days ,advised him to have echocardiogram and stress testing with his release and technical records clerk in [place]. off p neck KAYA switched tophi asa si usingnce started on warfarin as per cardiology. he says he has appointment with his release and technical records clerk tomorrow. further management as per patient PCP and release and technical records clerk in [place] . Above was explained to him in detail with the help of science interpreter. Time Spent with Patient Time attestation: Total time spent providing and/or coordinating discharge services: Discharge coordination time: Greater than 30 minutes Quality: Stroke Does the patient have a stroke diagnosis?: No Physical Exam Vital Signs: Vital Signs: Last Vital Signs Temp 97.4 F 08/01/21 11:28 Pulse 84 08/01/21 11:28 Resp 20 08/01/21 11:28 BP 116/63 08/01/21 11:28 Pulse Ox 98 08/01/21 11:28 BMI result Body Mass Index 25.8 Appearance: Alert.? Oriented X3.? not in distress.? Eyes: Pupils equal, round and reactive to light.? Sclera nonicteric.? ENT: Pharynx normal.? Moist mucous membranes. cvs: rrr, [id number] , no murmur res: clear to auscultation ,no rhonchii or wheezing abd: no rebound or guarding ,nt, bs present. ext pulses present , no cyanosis ,Gait well balanced well coordinated. neuro: axo3 , nonfocal. DS: Data Data Completed and Pending Labs on day of discharge: Laboratory Results - last 24 hr 07/31/21 07/31/21 07/31/21 14:10 15:29 16:37 WBC RBC Hgb Hct MCV MCH MCHC RDW Plt Count MPV Absolute Nucleated RBC Nucleated RBC % (auto) PT INR PTT (Heparin Protocol) > 200.0 H* 157.7 H* D 83.2 H D Urine Opiates Screen Urine Fentanyl Screen Ur Barbiturates Screen Ur Phencyclidine Scrn Ur Amphetamines Screen U Benzodiazepines Scrn Urine Cocaine Screen U Marijuana (THC) Screen 07/31/21 08/01/21 08/01/21 17:18 05:54 05:54 WBC 6.4 RBC 3.34 L Hgb 10.6 L Hct 31.3 L MCV 93.7 MCH 31.7 MCHC 33.9 RDW 13.2 Plt Count 94 L MPV 11.6 Absolute Nucleated RBC 0.000 Nucleated RBC % (auto) 0.0 PT 15.2 H INR 1.3 H PTT (Heparin Protocol) Urine Opiates Screen Not Detected Urine Fentanyl Screen Not Detected Ur Barbiturates Screen Not Detected Ur Phencyclidine Scrn Not Detected Ur Amphetamines Screen Not Detected U Benzodiazepines Scrn Not Detected Urine Cocaine Screen POSITIVE H U Marijuana (THC) Screen POSITIVE H Preliminary micro results at discharge 07/31/21 02:09 Blood Culture - Preliminary Blood - Venous No growth after 24 hours. 07/31/21 02:08 Blood Culture - Preliminary Blood - Venous No growth after 24 hours. Discharge Plan Discharge Patient Disposition: Home, Self-Care Discharge Diagnosis: Elevated troponin, AFib with RVR. Referrals: Physician,Unknown J [Primary Care Provider] - 1 Week Discharge Medications: New acetaminophen 325 mg Tablet 650 mg PO Q6H PRN (Reason: Pain, Mild (Pain Scale 1-3)) Qty: 30 RF: 0 folic acid 1 mg Tablet 1 mg PO DAILY Qty: 30 RF: 0 thiamine mononitrate (vit B1) 100 mg Tablet 100 mg PO DAILY Qty: 30 RF: 0 warfarin 5 mg tablet 5 mg PO DAILY Qty: 30 RF: 0 Continued omeprazole 40 mg Capsule,Delayed Release(Dr/Ec) 40 mg PO BID RF: 0 tamsulosin 0.4 mg Capsule 0.4 mg PO DAILY RF: 0 atorvastatin 40 mg Tablet 40 mg PO DAILY RF: 0 clopidogrel 75 mg Tablet 75 mg PO DAILY RF: 0 metoprolol tartrate 25 mg Tablet 25 mg PO BID RF: 0 cholecalciferol (vitamin D3) 1,250 mcg (50,000 unit) Capsule 1,250 mcg PO QMONTH RF: 0 methadone 10 mg/mL Concentrate 200 mg PO DAILY RF: 0 Discharge Orders: Discharge Order (Routine); Ordered 08/01/21 Ordered By: Tex Scott Diet: advance to usual diet Activity on Discharge: As tolerated Stand Alone Forms: Patient Portal Discharge page Activity Restrictions/Additional Instructions: Please avoid skipping your home dose of metoprolol. Please follow-up with your primary care physician tomorrow. If you have any worsening or new symptoms, please return to the emergency room or call 911 Care Plan Goals: patient came with AFib with RVR also elevated troponin: patient was started on IV heparin,, aspirin statin- subsequently seen by Cardiology and thought to be elevated troponin related to AFib, patient has history of possible cardiac bypass in the past- will go home with plavix, statin also will add warfarin- patient wants to do further testing with his release and technical records clerk in [place] and check inr next 1 -2 days ,advised him to have echocardiogram and stress testing with his release and technical records clerk in [place]. he says he has appointment with his release and technical records clerk tomorrow. further management as per patient PCP and release and technical records clerk in [place] . Health Concerns: as above. Plan of Treatment: as above. Assessment: as above. Patient Instructions: A-fib (Atrial Fibrillation) (ED)
--- NOTE | 2021-08-01 11:55 | MHC.CM.PN ---
EMR REVIEWED, PT ADMITTED W/W/NSTEMI, AFIB, CM MET W/PT WHO DECLINED A FEEDER OPERATOR, PT ABLE TO ANSWER ALL QUESTIONS, PT VERIFIED LOCAL ADDRESS, PT REPORTS HE IS GOING BACK TO [place] TOMORROW MORNING TO GO TO A [facility] APPT, PT REPORTS HIS PCP IS DR. SANCHEZ IN THE [place] AND IS [address] FROM PT'S PROJECT SPECIALIST, APPT TOMORROW IS W/PCP AND PT PLANS ON WALKING ACROSS THE STRE[address] TO PROJECT SPECIALIST'S OFFICE TO LET HIM KNOW ABOUT HIS HOSPITAL STAY HERE AT [facility]. D/C PLAN: HOME SELF-CARE, FAMILY FOR TRANSPORT
[2021-08-01] MEDS: Tamsulosin HCL 0.4 MG CAPSULE PO (12:27)
--- NOTE | 2021-08-01 12:31 | MHC.CM.PN ---
Pt discharged home self-care w/new scripts, pt reports he has an appt w/pcp Dr. Mitchell tomorrow and will follow-up dry mop maker as well who is across the street from pcp, pt has called family for transport home.
[2021-08-01] MEDS: methADONE HCl 20 MG/2 ML ORAL.CONC 200 MG PO (12:33)
--- NOTE | 2021-08-01 13:40 | P.CDIR_ITS ---
Documented by User: Zoe Jones RN 08/01/21 13:42 Retrospective Query PHYSICIAN'S DOCUMENTATION REQUEST Date of Query: 08/01/21 1340 Patient Name: Dony Mckinney Admit Date: 07/31/21 Dear Doctor, A review of the medical record indicates additional documentation may be needed. Please review below and update the documentation accordingly. Clinical Indicators: Risk Factors/Clinical Indicators/Treatments Atrial Fibrillation RVR per ED and H&P Skipped Metoprolol at home If possible, please provide further specificity regarding atrial fibrillation, such as: * Paroxysmal atrial fibrillation: terminates spontaneously or with intervention within 7 days of onset. * Persistent atrial fibrillation: episodes of continuous AF that last more than 7 days and do not self-terminate. * Long lasting persistent atrial fibrillation: episodes of continuous AF that last more than 12 months, * Chronic or Permanent atrial fibrillation: when a decision has been made to accept the presence of AF and there is no further attempt to restore or maintain sinus rhythm. * Other (please specify) * Unable to determine Use of terms such as suspected, likely, concern for, or probable (associated with a specific diagnosis that is being evaluated, monitored, or treated as if it exists) are acceptable and can be coded in the inpatient setting, when documented at the time of discharge. Thank you, Zoe Jones RN Extension: [phone] Please use your independent medical judgment in providing your response. THIS QUERY IS PART OF THE PERMANENT MEDICAL RECORD Documented by User: Tex Scott MD 08/01/21 14:10 Retrospective Query Provider Response: Other (PAF)
[2021-08-01 15:04] VITALS: BP 131/66; PULSE 56; RESP 20; TEMP 36.7; O2SAT 99
--- NOTE | 2021-08-08 14:10 | P.CDIR_ITS ---
Documented by User: Zoe Jones RN 08/08/21 14:18 Retrospective Query PHYSICIAN'S DOCUMENTATION REQUEST Date of Query: 08/08/21 1411 Patient Name: Dony Mckinney Admit Date: 07/31/21 Dear Doctor, A review of the medical record indicates additional documentation may be needed. Please review below and update the documentation accordingly. Clinical Indicators: The diagnosis of NSTEMI was documented on 07/31/21 but is not consistently noted in subsequent documentation. Risk Factors/Clinical Indicators/Treatments Per Cardiology consult 07/31/21: He has ruled in for NSTEMI.? Per Discharge Summary 08/01/21: patient came with AFib with RVR also started on IV heparin, aspirin statin- subsequently seen by Cardiology and thought to be elevated troponin related to AFib. Troponin 3.3, 141.2 Please clarify the following: * NSTEMI was present on admission and is now resolved * NSTEMI was present on admission and is still being monitored, evaluated, or treated * NSTEMI was ruled out * NSTEMI is still a likely, suspected, probable diagnosis * Other (please specify) * Unable to determine Use of terms such as suspected, likely, concern for, or probable (associated with a specific diagnosis that is being evaluated, monitored, or treated as if it exists) are acceptable and can be coded in the inpatient setting, when documented at the time of discharge. Thank you, Zoe Jones RN Extension: [phone] Please use your independent medical judgment in providing your response. THIS QUERY IS PART OF THE PERMANENT MEDICAL RECORD Documented by User: Tex Scott MD 08/14/21 15:23 Retrospective Query Provider Response: Other ( troponin any dated secondary to demand due to afib rvr as per cardio.)
== END 2021-08-01 17:52 | disposition home or self-care (01) | DRG 201 ==
LOC: HO.ED 05:53 → HO.EDOVER 06:39 → HO.S3 13:44
PROVIDERS: Admitting Provider Internal Medicine; Emergency Provider Emergency Medicine; Visit Provider Internal Medicine
DX: I48.0 Paroxysmal atrial fibrillation (principal); I21.A1 Myocardial infarction type 2; Z95.1 Presence of aortocoronary bypass graft; E87.6 Hypokalemia; I25.10 Atherosclerotic heart disease of native coronary artery without angina pectoris; Z20.822 Contact with and (suspected) exposure to COVID-19; I25.2 Old myocardial infarction; Z91.14 Patient's other noncompliance with medication regimen; Z79.01 Long term (current) use of anticoagulants; Z79.02 Long term (current) use of antithrombotics/antiplatelets; Z79.899 Other long term (current) drug therapy
CPT/HCPCS: 36415; 71045; 80048; 80076; 80307; 82077; 83605; 83735; 83880; 84484; 85025; 85027; 85610; 85730; 87040; 87635; 93005; 96361; 96374; 96376; 99285